=== PATIENT | female | born 1970 | race Two or more races ===

== ENCOUNTER 2020-06-11 12:23 | Emergency (ER) | payer BC ==
[~2020-06-11] VITALS: Ht 162.6 cm; Wt 56.0 kg
[2020-06-11 13:38] LABS: BASOPHILS % 0.5 % (0.0-2.0); EOSINOPHILS % 3.2 % (0.0-5.0); HEMATOCRIT. 43.9 % (36.0-48.0); HEMOGLOBIN. 14.6 g/dL (12.0-16.0); LYMPHOCYTES % 24.6 % (20.0-50.0); MEAN CORPUSCULAR HEMOGLOBIN 30.4 pg (28.0-32.0); MEAN CORPUSCULAR VOLUME 91.5 fL (81.0-99.0); MEAN PLATELET VOLUME 10.1 fl (7.4-10.4); MONOCYTES % 5.8 % (2.0-8.0); NEUTROPHILS % 65.9 % (40.0-76.0); PLATELET 156 x1000/uL (130-400); RED BLOOD CELL COUNT 4.79 mill/uL (4.2-5.4); RED CELL DISTRIBUTION WIDTH 13.9 % (11.6-14.6)
[2020-06-11 13:44] LABS: CHLORIDE 106 mEq/L (98-107)
[2020-06-11 13:53] LABS: ETHANOL BLOOD < 10 mg/dL
[2020-06-11 14:36] LABS: CLARITY URINE CLEAR (CLEAR); COLOR URINE YELLOW (YELLOW); KETONES URINE NEGATIVE (NEGATIVE); LEUKOCYTE ESTERASE URINE NEGATIVE (NEGATIVE); NITRITE URINE NEGATIVE (NEGATIVE); OCCULT BLOOD URINE 1+ (NEGATIVE); PROTEIN URINE NEGATIVE (NEGATIVE); SPECIFIC GRAVITY URINE 1.019 (1.005-1.030)
[2020-06-11 14:55] LABS: *AMPHETAMINES SCREEN URINE NEGATIVE (NEGATIVE); *BARBITURATES SCREEN URINE NEGATIVE (NEGATIVE); *BENZODIAZEPINES SCREEN URINE NEGATIVE (NEGATIVE); *COCAINE SCREEN URINE NEGATIVE (NEGATIVE); CANNABINOID URINE SCREEN NEGATIVE (NEGATIVE); METHADONE URINE SCREEN NEGATIVE (NEGATIVE); OPIATES URINE SCREEN NEGATIVE (NEGATIVE); PHENCYCLIDINE URINE SCREEN NEGATIVE (NEGATIVE)
[2020-06-11] MEDS ORDERED: OLANZAPINE 10 MG/VIAL IM ONE (19:15)
[2020-06-11] MEDS ORDERED: LORAZEPAM 2MG/ML CPJ IM ONE (19:30)
[2020-06-12] MEDS ORDERED: BENZTROPINE MESYLATE 1MG/1ML 2ML AMP IM ONE (02:45)
[2020-06-12] MEDS ORDERED: HALOPERIDOL LACTATE 5MG/ML VIAL IM ONE (02:45)
[2020-06-12] MEDS ORDERED: LORAZEPAM 2MG/ML CPJ IM ONE (02:45)
[2020-06-12] MEDS: RISPERIDONE 1MG TABLET PO SCH ×2 (08:56→17:19)
[2020-06-12] MEDS: LORAZEPAM 1MG TABLET PO SCH ×2 (08:57→17:19)
[2020-06-12 19:27] VITALS: BP 116/79
== END 2020-06-12 20:01 ==
LOC: EDBD 12:23 → ER 12:23
DX: R26.9 Unspecified abnormalities of gait and mobility (principal); F20.9 Schizophrenia, unspecified; R45.851 Suicidal ideations; F31.9 Bipolar disorder, unspecified; Z78.1 Physical restraint status
CPT/HCPCS: 36415; 80053; 80305; 80320; 81003; 85025; 96372; 99285; J0515; J1630; J2060; J3490; Z7610; G0480